=== PATIENT | female | born 1940 | race Caucasian/White ===

== ENCOUNTER 2021-12-31 12:33 | Outpatient (CLI) | payer BC, SELFPAY ==
[2021-12-31 20:27] LABS: Alanine Aminotransferase 17 U/L (6-35); Albumin Level 4.3 g/dL (3.5-5.1); Alkaline Phosphatase 57 U/L (38-126); Anion Gap 10 mmol/L (8-16); Aspartate Amino Transferase 37 U/L (14-36); Bilirubin,Total 0.3 mg/dL (0.2-1.3); Blood Urea Nitrogen 23 mg/dL (7-17); Calcium 9.1 mg/dL (8.4-10.2); Carbon Dioxide 30 mmol/L (22-30); Chloride 104 mmol/L (98-107); Estimated Glomerular Filt Rate > 60; Glucose 91 mg/dL (65-110); Potassium 3.9 mmol/L (3.4-5.0); Sodium 144 mmol/L (137-145)
== END 2021-12-31 12:34 | disposition home or self-care (01) ==
LOC: ANHGOSHLAB 12:35
PROVIDERS: PCP Family Medicine; Visit Provider Family Medicine
DX: Z13.228 Encounter for screening for other metabolic disorders (principal)
CPT/HCPCS: 36415; 80053

== ENCOUNTER → 2022-02-08 15:03 | Outpatient (CLI) | payer BC, SELFPAY ==
--- NOTE | ~2022-02-08 | DEXA_ITS ---
Bone Density Report Name: SHAYNE GALLAGHER Age: 81 Sex: Female Ethnicity: White Date of : 1940 Indication: postmenopausal; screening for osteoporosis; Referring Provider: ASCENCION WHITE Study: Bone densitometry was performed. Exam Date: February 08, 2022 Accession number: [id number] Bone Density: Region BMD T-score Z-score Classification AP Spine (L1-L4) 0.795 -2.3 0.5 Osteopenia Femoral Neck (Left) 0.693 -1.4 1.0 Osteopenia Total Hip (Left) 0.781 -1.3 0.8 Osteopenia Femoral Neck (Right) 0.707 -1.3 1.1 Osteopenia Total Hip (Right) 0.815 -1.0 1.1 Normal Total Hip Mean 0.798 -1.2 1.0 Osteopenia World Health Organization criteria for BMD impression classify patients as: Normal (T-score at or above -1.0), Osteopenia (T-score between -1.0 and -2.5), or Osteoporosis (T-score at or below -2.5). 10-year Fracture Risk(1): Major Osteoporotic Fracture 11% Hip Fracture 3.0% Reported Risk Factors: [place] (), Neck BMD=0.693, BMI=20.6 (1) FRAX(R) Version 3.08. Fracture probability calculated for an untreated patient. Fracture probability may be lower if the patient has received treatment. Clinical Information Provided by Patient: Has used the following medications: Calcium, MULTI VITAMIN Patient maximum height was 66 Menopause Age: 71 Does not regularly consume dairy products Drinks caffeinated beverages Onset of menses at age 15 Number of children 4 Impression: The patient has low bone mass, based on the Total Spine T-score. The patient has an estimated ten-year risk of hip fracture of 3% and an estimated ten-year risk of major fracture of 11%, based on the WHO FRAX algorithm. Discussion: BONE DENSITY IS LOW AT ONE OR MORE SKELETAL SITES. THE PATIENT'S BMD AND CLINICAL RISK FACTORS CONTRIBUTE TO THIS PATIENT'S INCREASED RISK OF FRACTURE. This patient's lowest T-score is low at one or more skeletal sites. It meets the World Health Organization's (WHO) criteria for ?low bone mass? (T-score between -1.0 and -2.5). The patient's 10-year risk of hip fracture as calculated by FRAX exceeds the threshold where pharmacological therapy is recommended by the National Osteoporosis Foundation (NOF). However, all treatment decisions require clinical judgment and consideration of individual patient factors, including patient preferences, comorbidities, previous drug use, risk factors not captured in the FRAX model (e.g., frailty, falls, vitamin D deficiency, increased bone turnover, interval significant decline in bone density) and possible under or overestimation of fracture risk by FRAX. The patient should follow a healthful lifestyle (good nutrition with adequate calcium and vitamin D, and appropriate weight-bearing exercise). Follow-Up: Consider a repeat BMD and Vertebral Fracture Assessment
== END ==
PROVIDERS: PCP Family Medicine; Visit Provider Family Medicine
DX: M85.89 Other specified disorders of bone density and structure, multiple sites (principal)
CPT/HCPCS: 77080

== ENCOUNTER 2023-05-09 12:13 | Outpatient (CLI) | payer BC, SELFPAY ==
--- NOTE | ~2023-05-09 | XR_ITS ---
XR lumbar spine 2-3V DATE: 05/09/2023 12:34 INDICATION: Previous fracture of T11-T12 TECHNIQUE: AP, lateral, coned lateral lumbosacral views COMPARISON: None FINDINGS: Levoscoliosis of the thoracolumbar spine. Osteopenia. Likely chronic burst fracture deformity of T12 with approximately 60% loss of height of this vertebra anteriorly. No other lumbar spine fracture is evident. Grade 1 anterolisthesis at L5-S1. Moderately severe degenerative disc disease at L5-S1. Lumbar inters paces appear relatively well preserved. The sacroiliac joints are intact. There is abdominal aortic calcification without evidence of aneurysm. IMPRESSION: Chronic prominent T12 burst fracture deformity Osteopenia Scoliosis Moderately severe degenerative disc disease and grade 1 anterolisthesis of L5-S1 Reviewed, dictated and finalized at location B. ER ROOM ATTENDANT IMPRESSION: Chronic prominent T12 burst fracture deformity Osteopenia Scoliosis Moderately severe degenerative disc disease and grade 1 anterolisthesis of L5-S 1
== END 2023-05-09 12:14 | disposition home or self-care (01) ==
PROVIDERS: PCP Family Medicine; Visit Provider Physician Assistant
DX: S22.089A Unspecified fracture of T11-T12 vertebra, initial encounter for closed fracture (principal); X58.XXXA Exposure to other specified factors, initial encounter; M85.88 Other specified disorders of bone density and structure, other site; M41.9 Scoliosis, unspecified; M51.37 Other intervertebral disc degeneration, lumbosacral region; S22.081A Stable burst fracture of T11-T12 vertebra, initial encounter for closed fracture
CPT/HCPCS: 72100

== ENCOUNTER 2023-07-20 09:04 | Outpatient (CLI) | payer BC, SELFPAY ==
[2023-07-20 12:19] LABS: Basophils Percent Auto 0.2 % (0.2-1.2); Eosinophils Absolute Auto 0.1 K/mm3 (0-0.3); Eosinophils Percent Auto 1.3 % (0-4.4); Hematocrit 44.5 % (37.0-47.0); Immature Granulocyte Absolute 0.02 K/mm3 (0.00-0.031); Immature Granulocyte Percent A 0.4 % (0-0.5); Lymphocytes Absolute Auto 1.99 K/mm3 (0.9-3.2); Lymphocytes Percent Auto 42.2 % (18.3-44.2); Mean Corpuscular HGB Conc 31.5 g/dl (32-36); Mean Corpuscular Hemoglobin 31.5 pg (26-34); Mean Platelet Volume 11.4 fl (7.4-10.4); Monocytes Absolute Auto 0.5 K/mm3 (0.1-0.6); Monocytes Percent Auto 11.2 % (2.6-8.5); Neutrophils Absolute Auto 2.1 K/mm3 (1.3-6.7); Neutrophils Percent Auto 44.7 % (45.5-73.1); Platelet Count Result 182 k/mm3 (150-375); Red Blood Count 4.45 M/mm3 (4.2-5.4); Red Cell Distribution Width 12.1 % (11.5-14.5); White Blood Count 4.7 K/mm3 (4.5-10.0)
[2023-07-20 12:28] LABS: Alanine Aminotransferase 15 U/L (6-35); Albumin Level 4.3 g/dL (3.5-5.1); Alkaline Phosphatase 56 U/L (38-126); Anion Gap 4 mmol/L (4-12); Aspartate Amino Transferase 46 U/L (14-36); Bilirubin,Total 0.4 mg/dL (0.2-1.3); Blood Urea Nitrogen 26 mg/dL (7-17); Calcium 9.5 mg/dL (8.4-10.2); Carbon Dioxide 31 mmol/L (22-30); Chloride 106 mmol/L (98-107); Cholesterol 184 mg/dL (0-200); Estimated Glomerular Filt Rate > 60; Glucose 90 mg/dL (65-110); HDL Direct 59 mg/dL; Sodium 141 mmol/L (137-145); Triglycerides 109 mg/dL (<150)
[2023-07-20 12:39] LABS: LDL Cholesterol Direct 99 mg/dL
== END 2023-07-20 09:05 | disposition home or self-care (01) ==
LOC: ANHGOSHLAB 09:06
PROVIDERS: PCP Family Medicine; Visit Provider Family Medicine
DX: Z13.220 Encounter for screening for lipoid disorders (principal); R53.83 Other fatigue; Z13.29 Encounter for screening for other suspected endocrine disorder; Z13.228 Encounter for screening for other metabolic disorders
CPT/HCPCS: 36415; 80053; 80061; 84443; 85025

== ENCOUNTER 2024-09-04 11:26 | Outpatient (CLI) | payer BC, SELFPAY ==
--- OUTSIDE RECORDS SUMMARY | 2024-09-04 11:37 | XMS_ITS | Patient Health Record ---
Author Organization [facility] Address [address] [place], [place] [id number] Care Team Providers Care It Support Manager Name Role Phone MICA NOLASCO Unavailable [phone] Jose Vasquez Unavailable Unavailable Allergies No Known Allergies Reason For Referral No Information Social History Tobacco Use: Social History Observation Description Date Details (start date - stop date) Never Smoker NA - NA Tobacco Use/Smoking Question Answer Notes Tobacco use: nonsmoker Plan Of Treatment No Information Insurance Providers Payer Name Payer Address Payer Phone Subscriber Number Group Number Insured Name Patient Relationship to Insured Coverage Start Date Coverage End Date [facility] ([facility] ATTN CLAIMS [address] [place] [address] [id number] Rhonda GALLAGHER Self - patient is the insured
--- OUTSIDE RECORDS SUMMARY | 2024-09-04 11:37 | XMS_ITS | Referral Summary ---
Author Organization [facility] [place] [facility] Address [address] [place] [address] Care Team Providers Care Manager Technical Services Name Role Phone Miscellaneous, Not In File Primary Care Provider Unavailable Allergies Active Allergy Reactions Criticality Noted Date Comments Risedronate Unknown 03/24/2004 Medications multivit kxvhelkl-dzrm-W A-calcium (THERA-M) 9 mg iron-400 mcg tablet Take 1 tablet by mouth daily Active triamcinolone (KENALOG) 0.1 % cream Application Site: apply twice daily for up to 2 weeks on right leg 8 Active traMADoL (ULTRAM) 50 mg tablet Take 1 tablet (50 mg total) by mouth every 8 (eight) hours as needed for pain for up to 2 days 6 tablet 3 Active Active Problems Problem Noted Date Diagnosed Date [place] of foot 12/20/2018 Assessment & Plan (12/20/2018 4:33 PM CDT): Reviewed that soaking & using pumice stone is best option to treat plantar foot corn. [place] Stallion Keeper information given for Mrs Sosa to f/u. Info for [place] Stallion Keeper: [facility] 4.0 (4) Stallion Keeper [address] [facility] [address] [address] Open ? Closes 5PM Website [facility] No reviews Stallion Keeper [address] Directions [facility]: Salu Quinones DPM 5.0 (9) Stallion Keeper [address] Open ? Closes 5PM Benign neoplasm of skin 02/12/2004 Osteoporosis 02/12/2004 Immunizations Immunization Administration Dates Next Due Td, adsorbed 12/17/2002 ZOSTER LIVE 04/21/2015 Social History Tobacco Use Types Packs/Day Years Used Date Smoking Tobacco: Never Smokeless Tobacco: Never Personal Safety Answer Date Recorded Have you ever been in or are you currently in a harmful physical or emotional relationship or is someone making you feel afraid or unsafe? 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 Gender Identity Not on file Sexual Orientation Not on file Last Filed Vital Signs Vital Sign Reading Time Taken Comments Blood Pressure 97/60 02/08/2023 8:30 PM ANIMAL ANATOMY TEACHER Pulse 60 02/08/2023 8:30 PM ANIMAL ANATOMY TEACHER Temperature 36.8 C (98.2 F) 02/08/2023 6:03 PM ANIMAL ANATOMY TEACHER Respiratory Rate 18 02/08/2023 6:03 PM ANIMAL ANATOMY TEACHER Oxygen Saturation 98% 02/08/2023 8:30 PM ANIMAL ANATOMY TEACHER Inhaled Oxygen Concentration - - Weight 63.5 kg (140 lb) 02/08/2023 6:03 PM ANIMAL ANATOMY TEACHER Height 177.8 cm (5' 10) 12/20/2018 3:31 PM CDT Body Mass Index 20.09 12/20/2018 3:31 PM CDT Plan of Treatment Not on file Insurance [facility] MEDICARE MEDICARE [facility] Care Teams Manager Technical Services Relationship Specialty Start Date End Date Miscellaneous, Not In File PCP - General 02/08/23
--- OUTSIDE RECORDS SUMMARY | 2024-09-04 11:37 | XMS_ITS | Clinical Summary ---
Author Organization [facility] Address [address] [place] [address] Phone Care Team Providers Care Furniture Upholsterer Apprentice Name Role Phone Unavailable Primary Care Provider Unavailabl e Allergies Active Allergy Reactions Criticality Noted Date Comments Risedronate Unknown 03/24/2004 Medications therapeutic multivitamin-mi nerals (THERAGRAN-M) Tablet Take 1 Tab by mouth daily. Active calcium 500 MG Tablet Take 500 mg by mouth 3 times daily. Active triamcinolone (KENALOG) 0.1 % CreamIndication s:Dermatitis Application Site: apply twice daily for up to 2 weeks on right leg 80 g 1 8 Active Active Problems No known active problems Immunizations Immunization Administration Dates Next Due Covid-19, Mrna, Lnp-s, Pf, 30 Mcg/0.3 Ml Dose (P lian) 07/04/2020,06/13/2020 TD VACCINE 12/17/2002 Zoster Vaccine, live 04/21/2015 Family History Medical History Relation Name Comments Cancer Brother 1 Heart Attack Brother 1 No Known Problems Brother 2 Car accide nt Cancer Brother 3 No Known Problems Brother 4 No Known Problems Brother 5 No Known Problems Father No Known Problems Mother No Known Problems Sister 1 Cancer Sister 2 No Known Problems Sister 3 Pneumonia passed at age 1 year Relation Name Status Comments Brother 1 Brother 2 Brother 3 Brother 4 Alive Brother 5 Alive Father Mother Sister 1 Alive Sister 2 Sister 3 Social History Tobacco Use Types Packs/Day Years Used Date Smoking Tobacco: Never Smokeless Tobacco: Never Tobacco Cessation:Counseling Given: No Alcohol Use Standard Drinks/Week Comments No 0 (1 standard drink = 0.6 oz pur e alcohol) quit 1993 Sexually Active Control Partners Comments Never Comments No Sex and Gender Information Value Date Recorded Sex Assigned at Not on file Legal Sex Female 7:48 PM CDT Gender Identity Not on file Sexual Orientation Not on file Occupation Industry Job Start Date Job End Date Retired Not on file Not on file Not on file Last Filed Vital Signs Vital Sign Reading Time Taken Comments Blood Pressure 132/56 01/10/2018 1:42 PM CDT Pulse 76 01/10/2018 1:42 PM CDT Temperature 37.2 C (99 F) 01/10/2018 1:42 PM CDT Respiratory Rate 16 01/10/2018 1:42 PM CDT Oxygen Saturation 97% 01/10/2018 1:42 PM CDT Inhaled Oxygen Concentration - - Weight 64 kg (141 lb) 01/10/2018 1:42 PM CDT Height 170.2 cm (5' 7) 01/10/2018 1:42 PM CDT Body Mass Index 22.08 01/10/2018 1:42 PM CDT Plan of Treatment Health Maintenance Due Date Last Done Comments Hepatitis C Virus (HCV) Screening 1940 TdaP Immunization 1940 Pneumococcal Immunization (5 0+ years) (1 of 1 - PCV) 1990 Respiratory Syncytial Virus (RSV) Immunization (Adult) (1 - 1-dose 75+ series) 06/12/2015 Zoster Immunization (2 of 3) 06/16/2015 04/21/2015 Influenza Immunization (#1) 2023 SARS-COV-2 Immunization ( season) 2023 03/25/2021, 07/04/2020, 06/13/2020 Hepatitis B Immunization Aged Out No longer eligible based on patient's age to complete this topic Meningococcal Immunization (ACWY) Aged Out No longer eligible b ased on patient's age to complete this topic Rotavirus Immunization Aged Out No lo nger eligible based on patient's age to complete this topic Insurance MEDICARE [facility]
--- OUTSIDE RECORDS SUMMARY | 2024-09-04 11:37 | XMS_ITS | Clinical Summary ---
Author Organization [facility] [place] [facility] Address [address] [place] [address] Care Team Providers Care Crown Ironer Operator Name Role Phone Miscellaneous, Not In File Primary Care Provider Unavailable Allergies Active Allergy Reactions Criticality Noted Date Comments Risedronate Unknown 03/24/2004 Medications multivit qqrbgkme-rbap-S A-calcium (THERA-M) 9 mg iron-400 mcg tablet [...] Active Problems Problem Noted Date Diagnosed Date [place] of foot 12/20/2018 Assessment & Plan (12/20/2018 4:33 PM CDT): Reviewed that soaking & using pumice stone is best option to treat plantar foot corn. [place] Cam Specialist information given for Mrs Sosa to f/u. Info for [place] Cam Specialist: [facility] 4.0 (4) Cam Specialist [address] Open ? Closes 5PM Website [facility] No reviews Cam Specialist [address] Directions [facility]: Saul Quinones DPM 5.0 (9) Cam Specialist [address] Open ? Closes 5PM Benign neoplasm of skin 02/12/2004 Osteoporosis 02/12/2004 Immunizations Immunization Administration Dates Next Due Td, adsorbed 12/17/2002 ZOSTER LIVE 04/21/2015 Surgical History Surgery Date Site/Laterality Comments TUBAL LIGATION Medical History Medical History Date Comments Osteoporosis Social History Tobacco Use Types Packs/Day Years [...] on file Legal Sex Female 1:12 AM LAUNDRY FOLDER Gender Identity Not on file Sexual Orientation Not on file Obstetrics History Last Filed Vital Signs Vital Sign Reading Time Taken Comments Blood Pressure 97/60 02/08/2023 8:30 PM LAUNDRY FOLDER Pulse 60 02/08/2023 8:30 PM LAUNDRY FOLDER Temperature 36.8 C (98.2 F) 02/08/2023 6:03 PM LAUNDRY FOLDER Respiratory Rate 18 02/08/2023 6:03 PM LAUNDRY FOLDER Oxygen Saturation 98% 02/08/2023 8:30 PM LAUNDRY FOLDER Inhaled Oxygen Concentration - - Weight 63.5 kg (140 lb) 02/08/2023 6:03 PM LAUNDRY FOLDER Height 177.8 cm (5' 10) 12/20/2018 3:31 PM CDT Body Mass Index 20.09 12/20/2018 3:31 PM CDT Plan of Treatment Health Maintenance Due Date Last Done Comments Depression Screening 1940 Fall Risk Assessment 1940 Osteoporosis Screening-Bone Density Scan 1940 Hepatitis B Screening 1958 Pneumococcal vaccine 65+ (1 of 1 - PCV) 1990 DTaP/Tdap/Td Vaccine (1 - Tdap) 12/18/2002 3 Well Visit 65+ 2005 Zoster Vaccine (2 of 3) 06/16/2015 04/21/2015 Covid-19 Vaccine (5 - 2023-2 5 season) 2023 08/11/2021, 03/25/2021, 07/04/2020, Additional history exists Influenza Vaccine (Season Ended) 2024 01/01/20 22 Insurance [facility] MEDICARE MEDICARE [employer] [facility] Care Teams Crown Ironer Operator Relationship Specialty Start Date End Date Miscellaneous, Not In File PCP - General 02/08/23
[2024-09-04 19:15] LABS: Basophils Percent Auto 0.6 % (0.2-1.2); Eosinophils Absolute Auto 0.1 K/mm3 (0-0.3); Eosinophils Percent Auto 1.2 % (0-4.4); Hematocrit 45.9 % (37.0-47.0); Hemoglobin 14.6 g/dL (12.0-15.0); Immature Granulocyte Absolute 0.01 K/mm3 (0.00-0.031); Immature Granulocyte Percent A 0.2 % (0-0.5); Lymphocytes Absolute Auto 1.72 K/mm3 (0.9-3.2); Lymphocytes Percent Auto 33.3 % (18.3-44.2); Mean Corpuscular HGB Conc 31.8 g/dl (32-36); Mean Corpuscular Hemoglobin 31.5 pg (26-34); Mean Corpuscular Volume 98.9 fl (80-100); Mean Platelet Volume 11.4 fl (7.4-10.4); Monocytes Absolute Auto 0.6 K/mm3 (0.1-0.6); Neutrophils Absolute Auto 2.7 K/mm3 (1.3-6.7); Neutrophils Percent Auto 52.7 % (45.5-73.1); Platelet Count Result 183 k/mm3 (150-375); Red Blood Count 4.64 M/mm3 (4.2-5.4); Red Cell Distribution Width 11.9 % (11.5-14.5); White Blood Count 5.2 K/mm3 (4.5-10.0)
[2024-09-04 22:24] LABS: Alanine Aminotransferase 17 U/L (6-35); Albumin Level 4.1 g/dL (3.5-5.1); Alkaline Phosphatase 43 U/L (38-126); Anion Gap 3 mmol/L (4-12); Aspartate Amino Transferase 32 U/L (14-36); Bilirubin,Total 0.5 mg/dL (0.2-1.3); Blood Urea Nitrogen 21 mg/dL (7-17); Calcium 9.8 mg/dL (8.4-10.2); Carbon Dioxide 33 mmol/L (22-30); Chloride 106 mmol/L (98-107); Estimated Glomerular Filt Rate > 60; Glucose 87 mg/dL (65-110); Potassium 4.8 mmol/L (3.4-5.0); Sodium 142 mmol/L (137-145)
[2024-09-04 22:33] LABS: Vitamin D 25 Hydroxy 51.3 ng/mL
== END 2024-09-04 11:27 | disposition home or self-care (01) ==
LOC: ANHGOSHLAB 11:27
PROVIDERS: PCP Nurse Practitioner; Visit Provider Clinical Nurse Specialist
DX: Z13.228 Encounter for screening for other metabolic disorders (principal); E55.9 Vitamin D deficiency, unspecified; F03.90 Unspecified dementia, unspecified severity, without behavioral disturbance, psychotic disturbance, mood disturbance, and anxiety
CPT/HCPCS: 36415; 80053; 82306; 82607; 85025